=== PATIENT | female | born 1995 ===

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

== ENCOUNTER 2017-02-24 03:44 | Emergency (ER) | payer OTHER ==
[2017-02-24 03:45] VITALS: O2SAT 96
[2017-02-24 03:58] VITALS: BP 118/53; PULSE 92; RESP 20; TEMP 98.3
[2017-02-24] MEDS ORDERED: SOLUMEDROL 125 MG/2 ML 125 MG/2 ML PDS IM ONE (03:58)
[2017-02-24] MEDS ORDERED: DIPHENHYDRAMINE 25 MG CAP PO ONE (03:58)
[2017-02-24] MEDS ORDERED: DIPHENHYDRAMINE 25 MG CAP ONE (04:00)
[2017-02-24] MEDS ORDERED: SOLUMEDROL 125 MG/2 ML 125 MG/2 ML PDS ONE (04:00)
[2017-02-24] MEDS ORDERED: PREDNISONE 20 MG TAB PO ONE (04:54)
[2017-02-24] MEDS ORDERED: PREDNISONE 20 MG TAB ONE (04:55)
== END 2017-02-24 05:21 | disposition home or self-care (01) ==
LOC: ED 03:44
DX: T78.1XXA Other adverse food reactions, not elsewhere classified, initial encounter (principal); L50.0 Allergic urticaria
CPT/HCPCS: 99282 ×2; J2930

== ENCOUNTER 2017-04-19 22:29 | Emergency (ER) | payer OTHER ==
[2017-04-19 22:35] VITALS: BP 110/72; PULSE 66; RESP 18; TEMP 97.4; O2SAT 99
== END 2017-04-19 23:35 | disposition home or self-care (01) ==
LOC: ED 22:29
DX: B00.1 Herpesviral vesicular dermatitis (principal)
CPT/HCPCS: 99282